=== PATIENT | female | born 1950 | race African-American/Black ===

== ENCOUNTER → 2023-04-27 | Outpatient (CLI) | payer OTHER, MEDICAID ==
[~2023-04-27] VITALS: Ht 165.1 cm; Wt 86.2 kg
[~2023-04-27] MED LIST: ADENOSINE 72 MG in GIVE UN-DILUTED 0 ML IV ONE; CAR125T PO; EMPA1TAB PO; LEVO750T8 PO; NITR0.4S29 SL; SACU1TAB PO; SPIR25TA PO
== END | disposition home or self-care (01) ==
LOC: XYW 08:32
PROVIDERS: ATTEND Internal Medicine
DX: R94.31 Abnormal electrocardiogram [ECG] [EKG] (principal); I25.10 Atherosclerotic heart disease of native coronary artery without angina pectoris; I11.0 Hypertensive heart disease with heart failure; I50.20 Unspecified systolic (congestive) heart failure; E11.9 Type 2 diabetes mellitus without complications; R63.8 Other symptoms and signs concerning food and fluid intake; Z68.33 Body mass index [BMI] 33.0-33.9, adult
CPT/HCPCS: 78452; 93017; A9500; J0153